=== PATIENT | female | born 1955 | race Two or more races ===

== ENCOUNTER 2023-07-04 17:18 | Emergency (ER) | payer MEDICARE, BC ==
[~2023-07-04] VITALS: Ht 162.6 cm; Wt 66.7 kg
[2023-07-04 17:25] VITALS: BP 157/78; TEMP 98.2; O2SAT 100
[2023-07-04 19:48] LABS: APPEARANCE,URINE CLEAR (CLEAR); BILIRUBIN,URINE NEGATIVE (NEGATIVE); BLOOD, URINE 1+ Ery/uL (NEGATIVE); COLOR,URINE YELLOW (YELLOW); KETONES,URINE NEGATIVE (NEGATIVE); LEUKOCYTE ESTERASE ,URINE NEGATIVE (NEGATIVE); NITRITE, URINE NEGATIVE (NEGATIVE); PH,URINE 5.5 (5.0-8.0); PROTEIN,URINE NEGATIVE (NEGATIVE); UGLUCOSE 3+ mg/dL (NEGATIVE); UROBILINOGEN,URINE 0.2 EU/dL (0.2)
[2023-07-04 20:27] LABS: ADD URINE CULTURE NO; BACTERIA,URINE None seen /HPF (None Seen); SQUAMOUS EPITHELIAL CELL,UR 0-2 /HPF (None Seen); WBC,URINE 0-2 /HPF (0-3)
[2023-07-04 20:30] LABS: MUCUS,URINE Few /LPF (None Seen)
== END 2023-07-04 20:21 | disposition home or self-care (01) ==
LOC: ER 17:31
DX: N81.4 Uterovaginal prolapse, unspecified (principal); I10 Essential (primary) hypertension; E78.00 Pure hypercholesterolemia, unspecified; E11.9 Type 2 diabetes mellitus without complications; E03.9 Hypothyroidism, unspecified
CPT/HCPCS: 81001

== ENCOUNTER 2023-07-10 15:37 | Emergency (ER) | payer MEDICARE, BC | END 2023-07-10 18:55 | disposition left against medical advice (07) | LOC: ER 15:43 | DX: N81.4 Uterovaginal prolapse, unspecified (principal); Z53.21 Procedure and treatment not carried out due to patient leaving prior to being seen by health care provider ==